=== PATIENT | female | born 1980 | race Caucasian/White ===

== ENCOUNTER → 2017-10-11 | Outpatient (REF) | payer OTHER ==
[2017-10-11 17:51] LABS: BASO % 0.5 % (0.0-1.0); EOS # 0.3 10^3/uL (0.0-0.50); EOS % 2.9 % (0.0-3.0); HEMATOCRIT 43.6 % (36.0-47.0); HEMOGLOBIN 13.4 g/dl (12.0-15.5); IMMATURE GRANULOCYTE % 0.6 % (0-3.0); MEAN CORPUSCULAR HEMOGLOBIN 25.4 pg (27.0-33.0); MEAN CORPUSCULAR HGB CONC 30.7 g/dl (32.0-36.5); MEAN CORPUSCULAR VOLUME 82.6 fl (80.0-96.0); MONO # 0.5 10^3/uL (0.0-0.8); MONO % 5.7 % (0.0-5.0); NEUTROPHILS # 4.9 10^3/uL (1.8-7.7); NEUTROPHILS % 56.3 % (36.0-66.0); PLATELET COUNT, AUTOMATED 239 10^3/uL (150-450); RED BLOOD COUNT 5.28 10^6/uL (4.00-5.40); RED CELL DISTRIBUTION WIDTH 16.4 % (11.5-14.5); WHITE BLOOD COUNT 8.7 10^3/uL (4.0-10.0)
[2017-10-11 17:58] LABS: ALBUMIN 3.1 GM/DL (3.2-5.2); ALBUMIN/GLOBULIN RATIO 0.74 (1.00-1.93); ALKALINE PHOSPHATASE 101 U/L (45-117); ALT/SGPT 24 U/L (12-78); ANION GAP 7 MEQ/L (8-16); AST/SGOT 18 U/L (7-37); BILIRUBIN,TOTAL 0.7 MG/DL (0.2-1.0); BLOOD UREA NITROGEN 10 MG/DL (7-18); CALCIUM LEVEL 8.4 MG/DL (8.5-10.1); CARBON DIOXIDE LEVEL 28 MEQ/L (21-32); CHLORIDE LEVEL 107 MEQ/L (98-107); CHOLESTEROL LEVEL 161 MG/DL (<200); CREATININE FOR GFR 0.64 MG/DL (0.55-1.30); GLOMERULAR FILTRATION RATE > 60.0 (>60); GLUCOSE, FASTING 111 MG/DL (70-100); HDL CHOLESTEROL 35 MG/DL (>40); LDL CHOLESTEROL 85.6 MG/DL (<100); NON-HDL-C 126 MG/DL; POTASSIUM SERUM 4.1 MEQ/L (3.5-5.1); SODIUM LEVEL 142 MEQ/L (136-145); THYROXINE (T4) 9.3 UG/DL (4.5-12.0); TOTAL PROTEIN 7.3 GM/DL (6.4-8.2); TRIGLYCERIDES LEVEL 202 MG/DL (<150)
[2017-10-11 18:36] LABS: HIV 1&2 SCREEN CENTAUR NEGATIVE (NEGATIVE)
[2017-10-11 22:28] LABS: ESTIMATED AVERAGE GLUCOSE 117 MG/DL (60-110); HEMOGLOBIN A1c 5.7 %
== END ==
LOC: M LAB REF 17:13
DX: R09.81 Nasal congestion (principal); Z68.45 Body mass index [BMI] 70 or greater, adult; Z11.3 Encounter for screening for infections with a predominantly sexual mode of transmission
CPT/HCPCS: 84443

== ENCOUNTER → 2019-04-28 | Outpatient (REF) | payer OTHER, MEDICAID ==
[~2019-04-28] MED LIST: LABE20TAB PO; MOTR200T44 PO; PERC5TAB12 PO; PRENTAB9 PO
[2019-04-28 19:03] LABS: BASO % 0.4 % (0.0-1.0); EOS # 0.2 10^3/uL (0.0-0.5); EOS % 2.5 % (0.0-3.0); HEMATOCRIT 40.5 % (36.0-47.0); LYMPH # 2.8 10^3/uL (1.5-5.0); LYMPH % 29.7 % (24.0-44.0); MEAN CORPUSCULAR HEMOGLOBIN 21.5 pg (27.0-33.0); MEAN CORPUSCULAR HGB CONC 27.2 g/dl (32.0-36.5); MEAN CORPUSCULAR VOLUME 79.1 fl (80.0-96.0); MONO # 0.6 10^3/uL (0.0-0.8); MONO % 6.4 % (0.0-5.0); NEUTROPHILS # 5.7 10^3/uL (1.5-8.5); NEUTROPHILS % 60.5 % (36.0-66.0); PLATELET COUNT, AUTOMATED 241 10^3/uL (150-450); RED BLOOD COUNT 5.12 10^6/uL (4.00-5.40); WHITE BLOOD COUNT 9.4 10^3/uL (4.0-10.0)
[2019-04-28 19:35] LABS: ALBUMIN 3.2 GM/DL (3.2-5.2); ALT/SGPT 21 U/L (12-78); BILIRUBIN,TOTAL 0.7 MG/DL (0.2-1.0); BLOOD UREA NITROGEN 10 MG/DL (7-18); CALCIUM LEVEL 8.3 MG/DL (8.5-10.1); CARBON DIOXIDE LEVEL 27 MEQ/L (21-32); CHLORIDE LEVEL 103 MEQ/L (98-107); CHOLESTEROL LEVEL 153 MG/DL (<200); CHOLESTEROL RISK RATIO 4.636 (<5); CREATININE FOR GFR 0.53 MG/DL (0.55-1.30); FREE T4 1.15 NG/DL (0.76-1.46); GLOMERULAR FILTRATION RATE > 60.0 (>60); GLUCOSE, FASTING 106 MG/DL (70-100); HDL CHOLESTEROL 33 MG/DL (>40); LDL CHOLESTEROL 85 MG/DL (<100); NON-HDL-C 120 MG/DL; POTASSIUM SERUM 4.9 MEQ/L (3.5-5.1); SODIUM LEVEL 138 MEQ/L (136-145); TOTAL PROTEIN 7.7 GM/DL (6.4-8.2); TRIGLYCERIDES LEVEL 173 MG/DL (<150)
[2019-04-28 19:41] LABS: HEMOGLOBIN A1c 6.1 %
== END ==
LOC: M LAB REF 17:24
PROVIDERS: ATTEND Family Medicine
DX: R03.0 Elevated blood-pressure reading, without diagnosis of hypertension (principal); Z68.45 Body mass index [BMI] 70 or greater, adult; R73.01 Impaired fasting glucose

== ENCOUNTER → 2020-03-21 | Outpatient (REF) | payer OTHER, MEDICAID ==
[2020-03-21 15:50] LABS: ALBUMIN 3.1 GM/DL (3.2-5.2); ALT/SGPT 16 U/L (12-78); BILIRUBIN,TOTAL 0.7 MG/DL (0.2-1.0); BLOOD UREA NITROGEN 9 MG/DL (7-18); CALCIUM LEVEL 8.4 MG/DL (8.5-10.1); CARBON DIOXIDE LEVEL 27 MEQ/L (21-32); CHLORIDE LEVEL 107 MEQ/L (98-107); CHOLESTEROL LEVEL 142 MG/DL (<200); CHOLESTEROL RISK RATIO 4.057 (<5); CREATININE FOR GFR 0.61 MG/DL (0.55-1.30); GLOMERULAR FILTRATION RATE > 60.0 (>58); GLUCOSE, FASTING 125 MG/DL (70-100); HDL CHOLESTEROL 35 MG/DL (>40); LDL CHOLESTEROL 74 MG/DL (<100); NON-HDL-C 107 MG/DL; SODIUM LEVEL 140 MEQ/L (136-145); TOTAL PROTEIN 6.9 GM/DL (6.4-8.2); TRIGLYCERIDES LEVEL 163 MG/DL (<150)
[2020-03-21 16:52] LABS: HEMOGLOBIN A1c 5.9 %
== END ==
LOC: M LAB REF 12:24
PROVIDERS: ATTEND Physician Assistant
DX: R03.0 Elevated blood-pressure reading, without diagnosis of hypertension (principal)

== ENCOUNTER 2024-11-27 14:16 | Inpatient (IN) | payer OTHER ==
[~2024-11-27] VITALS: Ht 162.6 cm; Wt 241.4 kg
[2024-11-27 15:15] LABS: BASO # 0.0 10^3/uL (0.0-0.2); BASO % 0.2 % (0.0-1.0); EOS # 0.0 10^3/uL (0.0-0.5); EOS % 0.0 % (0.0-3.0); LYMPH # 1.3 10^3/uL (1.5-5.0); LYMPH % 6.6 % (24.0-44.0); MONO # 1.1 10^3/uL (0.0-0.8); MONO % 5.8 % (2.0-8.0); NEUTROPHILS # 16.8 10^3/uL (1.5-8.5); NEUTROPHILS % 86.1 % (36.0-66.0); PLATELET COUNT, AUTOMATED 334 10^3/uL (150-450)
[2024-11-27 15:24] LABS: ALT/SGPT 59 U/L (7.0-40); AST/SGOT 239 U/L (<34); CALCIUM LEVEL 8.7 MG/DL (8.5-10.1); CARBON DIOXIDE LEVEL 20 MMOL/L (20-31); CHLORIDE LEVEL 98 MMOL/L (98-107); CREATININE FOR GFR 3.09 MG/DL (0.55-1.30); GLOMERULAR FILTRATION RATE 18.3 (>58); POTASSIUM SERUM 4.7 MMOL/L (3.5-5.1); SODIUM LEVEL 134 MMOL/L (136-145)
[2024-11-27 15:27] LABS: INR 1.17
[2024-11-27 15:33] LABS: C REACTIVE PROTEIN QUANTITATIV 20.57 MG/DL (<1.0); HCG, SERUM QUALITATIVE NEGATIVE (NEGATIVE)
[2024-11-27] MEDS: NS (Normal Saline) 0.9% 1,000 ML IV ONE ×2 (15:34→17:53)
[2024-11-27] MEDS: CEFEPIME HCL 2 GM in DEXTROSE 5% (D5W) ADV/MINI-BAG 50 ML IV ONE (16:21)
[2024-11-27] MEDS: [UNRECOGNIZED DRUG - OTHER] IV ONE (16:22)
[2024-11-27] MEDS: NS 0.9% IV ONE (16:22)
[2024-11-27 16:28] LABS: KETONE, URINE AUTO RFX NEGATIVE (NEGATIVE); MUCUS, URINE RFX SMALL (NEGATIVE); NITRITE, URINE AUTO RFX NEGATIVE (NEGATIVE); RBC, URINE AUTO RFX 26 /HPF (0-3); SQUAM EPITHELIAL CELL UR AURFX 3 /HPF (0-6)
[2024-11-27 16:39] LABS: LEUKOCYTE ESTERASE UR AUTO RFX 2+ (NEGATIVE); WBC, URINE AUTO RFX TNTC /HPF (0-3)
[2024-11-27] MEDS ORDERED: TELM1TAB35 PO (17:13)
[2024-11-27] MEDS ORDERED: METF-838 PO (17:13)
[2024-11-27] MEDS ORDERED: FERR325T19 PO (17:13)
[2024-11-27] MEDS ORDERED: HOME MED LIST COMPLETE! XX SCH (17:15)
[2024-11-27] MEDS ORDERED: GLUCAGON INJ 1 MG VIAL SC PRN (17:30)
[2024-11-27] MEDS ORDERED: GLUCOSE 4 GM CHEW PO PRN (17:30)
[2024-11-27] MEDS ORDERED: DEXTROSE 50% 50 ML SYRINGE IV PRN (17:30)
[2024-11-27] MEDS: VANCOMYCIN HCL 2,000 MG, VIAL MATE ADAPTER 1 EACH in NS 500 ML IV ONE (18:39)
[2024-11-27] MEDS: INSULIN LISPRO (NovoLOG) PER UNIT SC SCH ×2 (18:40→21:00)
[2024-11-27] MEDS: MORPHINE 4 MG/ML 1 ML VIAL IV PRN (19:24)
[2024-11-27] MEDS: NS (Normal Saline) 0.9% 1,000 ML IV SCH (19:25)
[2024-11-27 21:20] VITALS: BP 98/42; TEMP 97.8; O2SAT 95
[2024-11-27] MEDS: NYSTATIN 100,000 UNITS/GM TOPICAL PWD 15 GM TOP SCH (21:55)
[2024-11-27] MEDS: HEPARIN SOD 5000 UNITS/ML 1 ML VIAL/SYRINGE SQ SCH (22:08)
[2024-11-27 23:25] VITALS: BP 99/50; TEMP 97.2; O2SAT 100
[2024-11-28] VITALS (10 sets, daily range): BP systolic 69–106; BP diastolic 32–56; TEMP 97.7–98.5; O2SAT 92–96
[2024-11-28] MEDS: NS (Normal Saline) 0.9% 1,000 ML IV STA ×2 (04:24)
[2024-11-28 06:01] LABS: PLATELET COUNT, AUTOMATED 202 10^3/uL (150-450)
[2024-11-28 06:18] LABS: VANCOMYCIN RANDOM 10.4 UG/ML
[2024-11-28 06:19] LABS: CALCIUM LEVEL 7.5 MG/DL (8.5-10.1); CARBON DIOXIDE LEVEL 23.0 MMOL/L (20-31); CHLORIDE LEVEL 105.0 MMOL/L (98-107); CREATININE FOR GFR 1.7 MG/DL (0.55-1.30); GLOMERULAR FILTRATION RATE 37.5 (>58); POTASSIUM SERUM 4.0 MMOL/L (3.5-5.1); SODIUM LEVEL 138.0 MMOL/L (136-145)
[2024-11-28 08:26] LABS: ALT/SGPT 58.0 U/L (7.0-40); AST/SGOT 278.0 U/L (<34); CPK CREATINE PHOSPHOKINASE 9884.0 U/L (34-145)
[2024-11-28] MEDS ORDERED: CEFEPIME HCL 2 GM in DEXTROSE 5% (D5W) ADV/MINI-BAG 50 ML IV SCH (09:00)
[2024-11-28] MEDS: VANCOMYCIN HCL 1,500 MG, VIAL MATE ADAPTER 1 EACH in NS 500 ML IV SCH (09:44)
[2024-11-28] MEDS: GABAPENTIN 100 MG CAP PO SCH (12:15)
[2024-11-28] MEDS: CEFEPIME HCL 2 GM in DEXTROSE 5% (D5W) ADV/MINI-BAG 50 ML IV SCH (12:16)
[2024-11-28] MEDS: PERCOCET 5MG/325MG TAB PO PRN (12:16)
[2024-11-29] VITALS (11 sets, daily range): BP systolic 92–110; BP diastolic 44–96; TEMP 97.6–98.2; O2SAT 82–96
[2024-11-29] MEDS: NS 500 ML IV ONE (01:12)
[2024-11-29 06:19] LABS: BASO # 0.0 10^3/uL (0.0-0.2); BASO % 0.4 % (0.0-1.0); EOS # 0.2 10^3/uL (0.0-0.5); EOS % 1.4 % (0.0-3.0); LYMPH # 2.0 10^3/uL (1.5-5.0); LYMPH % 17.8 % (24.0-44.0); MONO # 0.9 10^3/uL (0.0-0.8); MONO % 7.7 % (2.0-8.0); NEUTROPHILS # 7.8 10^3/uL (1.5-8.5); NEUTROPHILS % 69.3 % (36.0-66.0); PLATELET COUNT, AUTOMATED 213 10^3/uL (150-450)
[2024-11-29 06:45] LABS: ALT/SGPT 59.0 U/L (7.0-40); AST/SGOT 223.0 U/L (<34); C REACTIVE PROTEIN QUANTITATIV 13.56 MG/DL (<1.0); CALCIUM LEVEL 7.2 MG/DL (8.5-10.1); CARBON DIOXIDE LEVEL 25.0 MMOL/L (20-31); CHLORIDE LEVEL 106.0 MMOL/L (98-107); CREATININE FOR GFR 0.83 MG/DL (0.55-1.30); GLOMERULAR FILTRATION RATE 88.5 (>58); MAGNESIUM LEVEL 1.9 MG/DL (1.8-2.4); POTASSIUM SERUM 3.9 MMOL/L (3.5-5.1); SODIUM LEVEL 139.0 MMOL/L (136-145)
[2024-11-29 08:24] LABS: CPK CREATINE PHOSPHOKINASE 5927.0 U/L (34-145)
[2024-11-29] MEDS: cefTRIAXone SOD 2 GM in DEXTROSE 5% (D5W) ADV/MINI-BAG 50 ML IV SCH (08:51)
[2024-11-29] MEDS: VANCOMYCIN HCL 1,500 MG, VIAL MATE ADAPTER 1 EACH in NS 500 ML IV SCH (09:34)
[2024-11-29] MEDS ORDERED: CEFEPIME HCL 2 GM in DEXTROSE 5% (D5W) ADV/MINI-BAG 50 ML IV SCH (10:00)
[2024-11-29] MEDS: DOCUSATE SODIUM 100 MG CAPSULE PO SCH (11:18)
[2024-11-29] MEDS: MIRALAX *UNIT DOSE* 17 GM PACKET PO SCH (11:21)
[2024-11-30 01:50] VITALS: BP 97/46
[2024-11-30 03:05] VITALS: BP 90/40; TEMP 98.2; O2SAT 94
[2024-11-30 03:17] LABS: BASO # 0.0 10^3/uL (0.0-0.2); BASO % 0.4 % (0.0-1.0); EOS # 0.3 10^3/uL (0.0-0.5); EOS % 3.6 % (0.0-3.0); LYMPH # 1.9 10^3/uL (1.5-5.0); LYMPH % 20.9 % (24.0-44.0); MONO # 0.5 10^3/uL (0.0-0.8); MONO % 5.4 % (2.0-8.0); NEUTROPHILS # 6.1 10^3/uL (1.5-8.5); NEUTROPHILS % 65.3 % (36.0-66.0); PLATELET COUNT, AUTOMATED 201 10^3/uL (150-450)
[2024-11-30 03:48] LABS: ALT/SGPT 48 U/L (7.0-40); AST/SGOT 142 U/L (<34); CALCIUM LEVEL 7.2 MG/DL (8.5-10.1); CARBON DIOXIDE LEVEL 27 MMOL/L (20-31); CHLORIDE LEVEL 109 MMOL/L (98-107); CREATININE FOR GFR 0.64 MG/DL (0.55-1.30); GLOMERULAR FILTRATION RATE > 90.0 (>58); POTASSIUM SERUM 4.4 MMOL/L (3.5-5.1); SODIUM LEVEL 138 MMOL/L (136-145)
[2024-11-30 10:37] LABS: CPK CREATINE PHOSPHOKINASE 2992 U/L (34-145)
[2024-11-30 10:45] VITALS: BP 110/64
[2024-11-30 12:00] VITALS: BP 111/61; TEMP 98.2; O2SAT 96
[2024-11-30] MEDS: BISACODYL 10 MG SUPP PR ONE (13:41)
[2024-11-30 20:00] VITALS: BP 96/55; TEMP 98.4; O2SAT 87
[2024-11-30] MEDS: SENNOSIDES/DOCUSATE SODIUM 8.6 MG/50MG TAB PO SCH (21:12)
[2024-12-01 05:19] VITALS: BP 86/47; TEMP 97.9; O2SAT 94
[2024-12-01 06:22] LABS: PLATELET COUNT, AUTOMATED 274 10^3/uL (150-450)
[2024-12-01 06:53] LABS: CALCIUM LEVEL 7.5 MG/DL (8.5-10.1); CARBON DIOXIDE LEVEL 28 MMOL/L (20-31); CHLORIDE LEVEL 107 MMOL/L (98-107); CREATININE FOR GFR 0.54 MG/DL (0.55-1.30); GLOMERULAR FILTRATION RATE > 90.0 (>58); MAGNESIUM LEVEL 1.8 MG/DL (1.8-2.4); POTASSIUM SERUM 4.1 MMOL/L (3.5-5.1); SODIUM LEVEL 139 MMOL/L (136-145)
[2024-12-01 08:20] LABS: CPK CREATINE PHOSPHOKINASE 1268 U/L (34-145)
[2024-12-01 08:23] LABS: ALT/SGPT 42 U/L (7.0-40); AST/SGOT 87 U/L (<34)
[2024-12-01 11:36] VITALS: BP 98/42; O2SAT 97
[2024-12-01 12:00] VITALS: TEMP 97.9; O2SAT 96
[2024-12-01 20:40] VITALS: BP 124/55; TEMP 98.8; O2SAT 94
[2024-12-02 04:07] VITALS: BP 127/57; TEMP 96.8; O2SAT 95
[2024-12-02 06:46] LABS: PLATELET COUNT, AUTOMATED 279 10^3/uL (150-450)
[2024-12-02 07:20] LABS: CALCIUM LEVEL 7.3 MG/DL (8.5-10.1); CARBON DIOXIDE LEVEL 31 MMOL/L (20-31); CHLORIDE LEVEL 105 MMOL/L (98-107); CREATININE FOR GFR 0.48 MG/DL (0.55-1.30); GLOMERULAR FILTRATION RATE > 90.0 (>58); MAGNESIUM LEVEL 1.6 MG/DL (1.8-2.4); POTASSIUM SERUM 4.0 MMOL/L (3.5-5.1); SODIUM LEVEL 140 MMOL/L (136-145)
[2024-12-02] MEDS: MAG SULF 1GM/100ML (MAG RUN) 1 GM in IV 1 EA IV SCH (08:06)
[2024-12-02 08:08] LABS: CPK CREATINE PHOSPHOKINASE 467 U/L (34-145)
[2024-12-02] MEDS: MAGNESIUM OXIDE 400 MG TAB PO SCH (09:00)
[2024-12-02 12:00] VITALS: BP 131/55; TEMP 98.1; O2SAT 95
[2024-12-02] MEDS: GABAPENTIN 100 MG CAP PO SCH (13:16)
[2024-12-02 20:39] VITALS: BP 100/52; TEMP 98.8; O2SAT 92
[2024-12-02] MEDS: CEFDINIR 300 MG CAP PO SCH (21:04)
[2024-12-03 03:38] VITALS: O2SAT 71
[2024-12-03 03:39] VITALS: O2SAT 95
[2024-12-03 05:06] VITALS: BP 118/66; TEMP 97.5; O2SAT 96
[2024-12-03 12:00] VITALS: BP 111/66; TEMP 97.9; O2SAT 97
[2024-12-03] MEDS: ACETAMINOPHEN 325 MG TAB PO PRN (17:00)
[2024-12-03 20:49] VITALS: BP 120/62; TEMP 97.9; O2SAT 99
[2024-12-03] MEDS: GABAPENTIN 300 MG CAP PO SCH (21:39)
[2024-12-04 04:15] VITALS: BP 120/62; TEMP 97; O2SAT 95
[2024-12-05 04:03] VITALS: BP 133/67; TEMP 97.5; O2SAT 94
[2024-12-06 04:29] VITALS: BP 126/58; TEMP 97.3; O2SAT 93
[2024-12-07 01:56] VITALS: O2SAT 78
[2024-12-07 02:00] VITALS: O2SAT 93
[2024-12-07 05:03] VITALS: BP 123/61; TEMP 97.7; O2SAT 91
[2024-12-08 03:49] VITALS: BP 134/69; TEMP 97.5; O2SAT 94
[2024-12-09 04:21] VITALS: BP 135/69; TEMP 97.5; O2SAT 93
[2024-12-10 05:40] VITALS: BP 103/59; TEMP 97.7
[2024-12-10] MEDS: SANTYL OINT 30GM TOP SCH (18:28)
[2024-12-11 05:26] VITALS: BP 115/66; TEMP 97.7; O2SAT 93
[2024-12-11 11:28] LABS: PLATELET COUNT, AUTOMATED 232 10^3/uL (150-450)
[2024-12-11 11:55] LABS: CALCIUM LEVEL 8.3 MG/DL (8.5-10.1); CARBON DIOXIDE LEVEL 28 MMOL/L (20-31); CHLORIDE LEVEL 101 MMOL/L (98-107); CREATININE FOR GFR 0.55 MG/DL (0.55-1.30); GLOMERULAR FILTRATION RATE > 90.0 (>58); POTASSIUM SERUM 4.2 MMOL/L (3.5-5.1); SODIUM LEVEL 136 MMOL/L (136-145)
[2024-12-11] MEDS ORDERED: GABA-1172 PO (12:03)
[2024-12-11] MEDS ORDERED: MAGN400T33 PO (12:03)
[2024-12-11] MEDS ORDERED: SANT250O8 TOP (12:03)
[2024-12-11] MEDS ORDERED: NYST10006 TOP (12:03)
[2024-12-12 04:39] VITALS: BP 143/83; TEMP 97.9; O2SAT 94
[2024-12-12 12:00] VITALS: BP 106/52; TEMP 98.1; O2SAT 97
== END 2024-12-12 16:00 | disposition home health service (06) | DRG 720 ==
LOC: M ED 14:16 → M ED INP 17:26 → M PCU 21:15 → M MSPAV 11-29 13:15
PROVIDERS: ADMIT Internal Medicine; ATTEND Internal Medicine
DX: A41.9 Sepsis, unspecified organism (principal); N17.9 Acute kidney failure, unspecified; L89.152 Pressure ulcer of sacral region, stage 2; L89.322 Pressure ulcer of left buttock, stage 2; M62.82 Rhabdomyolysis; Z68.45 Body mass index [BMI] 70 or greater, adult; E83.42 Hypomagnesemia; K76.0 Fatty (change of) liver, not elsewhere classified; E66.01 Morbid (severe) obesity due to excess calories; D50.9 Iron deficiency anemia, unspecified; E11.9 Type 2 diabetes mellitus without complications; I10 Essential (primary) hypertension; J98.11 Atelectasis; K59.00 Constipation, unspecified; M79.3 Panniculitis, unspecified; N39.0 Urinary tract infection, site not specified; R53.1 Weakness; R74.01 Elevation of levels of liver transaminase levels; Z99.3 Dependence on wheelchair; G47.33 Obstructive sleep apnea (adult) (pediatric); B96.20 Unspecified Escherichia coli [E. coli] as the cause of diseases classified elsewhere; Z79.899 Other long term (current) drug therapy; R65.20 Severe sepsis without septic shock

== ENCOUNTER 2024-12-29 20:32 | Inpatient (IN) | payer MEDICAID, OTHER ==
[~2024-12-29] VITALS: Ht 157.5 cm; Wt 238.6 kg
[~2024-12-29 20:32] MED LIST changes: +FERR325T19 PO; +GABA-1172 PO; +MAGN400T33 PO; +METF-838 PO; +NYST10006 TOP; +SANT250O8 TOP; +TELM1TAB35 PO
[2024-12-29] MEDS: NS (Normal Saline) 0.9% 1,000 ML IV ONE (20:59)
[2024-12-29 21:49] LABS: KETONE, URINE AUTO RFX NEGATIVE (NEGATIVE); LEUKOCYTE ESTERASE UR AUTO RFX TRACE (NEGATIVE); MUCUS, URINE RFX SMALL (NEGATIVE); NITRITE, URINE AUTO RFX POSITIVE (NEGATIVE); RBC, URINE AUTO RFX 6 /HPF (0-3); SQUAM EPITHELIAL CELL UR AURFX 2 /HPF (0-6); WBC, URINE AUTO RFX 11 /HPF (0-3)
[2024-12-29] MEDS ORDERED: MUPIROCIN 2% OINT 22 GM TUBE TOP ONE (21:55)
[2024-12-29 21:56] LABS: BASO # 0.0 10^3/uL (0.0-0.2); BASO % 0.1 % (0.0-1.0); EOS # 0.0 10^3/uL (0.0-0.5); EOS % 0.1 % (0.0-3.0); LYMPH # 0.7 10^3/uL (1.5-5.0); LYMPH % 4.7 % (24.0-44.0); MONO # 0.4 10^3/uL (0.0-0.8); MONO % 3.1 % (2.0-8.0); NEUTROPHILS # 12.9 10^3/uL (1.5-8.5); NEUTROPHILS % 91.4 % (36.0-66.0); PLATELET COUNT, AUTOMATED 218 10^3/uL (150-450)
[2024-12-29 22:08] LABS: INR 1.05
[2024-12-29] MEDS: ACETAMINOPHEN *IV* 1,000 MG in IV 1 EA IV ONE (22:17)
[2024-12-29] MEDS: PIPERACILLIN/TAZOBACTAM SOD 4.5 GM in DEXTROSE 5% (D5W) ADV/MINI-BAG 50 ML IV ONE (22:17)
[2024-12-29 22:22] LABS: ALT/SGPT 20 U/L (7.0-40); AST/SGOT 42 U/L (<34); C REACTIVE PROTEIN QUANTITATIV 1.88 MG/DL (<1.0); CALCIUM LEVEL 8.4 MG/DL (8.5-10.1); CARBON DIOXIDE LEVEL 29 MMOL/L (20-31); CHLORIDE LEVEL 103 MMOL/L (98-107); CREATININE FOR GFR 0.57 MG/DL (0.55-1.30); GLOMERULAR FILTRATION RATE > 90.0 (>58); POTASSIUM SERUM 4.2 MMOL/L (3.5-5.1); SODIUM LEVEL 143 MMOL/L (136-145)
[2024-12-29] MEDS: VANCOMYCIN HCL 1,000 MG, VIAL MATE ADAPTER 1 EACH in NS 250 ML IV ONE (23:34)
[2024-12-30] MEDS: NS (Normal Saline) 0.9% 1,000 ML IV ONE (00:04)
[2024-12-30] MEDS: IBUPROFEN 800 MG TAB PO ONE (00:04)
[2024-12-30] MEDS ORDERED: MOM 30 ML SUSPENSION UDC PO PRN (00:25)
[2024-12-30] MEDS ORDERED: MAALOX 30 ML SUSP *UDC PO PRN (00:25)
[2024-12-30] MEDS: NS (Normal Saline) 0.9% 1,000 ML IV SCH (00:25)
[2024-12-30] MEDS: VANCOMYCIN HCL 1,000 MG, VIAL MATE ADAPTER 1 EACH in NS 250 ML IV ONE (03:29)
[2024-12-30] MEDS ORDERED: DEXTROSE 50% 50 ML SYRINGE IV PRN (03:40)
[2024-12-30] MEDS ORDERED: GLUCOSE 4 GM CHEW PO PRN (03:40)
[2024-12-30] MEDS ORDERED: GLUCAGON INJ 1 MG VIAL SC PRN (03:40)
[2024-12-30 04:25] VITALS: BP 102/54; TEMP 100.2; O2SAT 96
[2024-12-30] MEDS: PIPERACILLIN/TAZOBACTAM SOD 4.5 GM in DEXTROSE 5% (D5W) ADV/MINI-BAG 50 ML IV SCH (04:58)
[2024-12-30] MEDS: GABAPENTIN 400 MG CAP PO ONE (05:44)
[2024-12-30 06:05] LABS: PLATELET COUNT, AUTOMATED 203 10^3/uL (150-450)
[2024-12-30 06:37] LABS: ALT/SGPT 16.0 U/L (7.0-40); AST/SGOT 34.0 U/L (<34); CALCIUM LEVEL 7.9 MG/DL (8.5-10.1); CARBON DIOXIDE LEVEL 28.0 MMOL/L (20-31); CHLORIDE LEVEL 103.0 MMOL/L (98-107); CREATININE FOR GFR 0.82 MG/DL (0.55-1.30); GLOMERULAR FILTRATION RATE 89.8 (>58); MAGNESIUM LEVEL 1.5 MG/DL (1.8-2.4); POTASSIUM SERUM 3.9 MMOL/L (3.5-5.1); SODIUM LEVEL 142.0 MMOL/L (136-145)
[2024-12-30] MEDS ORDERED: VANCOMYCIN HCL 1,500 MG, VIAL MATE ADAPTER 1 EACH in NS 500 ML IV SCH (08:00)
[2024-12-30 08:04] VITALS: BP 105/56; TEMP 98; O2SAT 94
[2024-12-30 08:46] LABS: VANCOMYCIN RANDOM 13.1 UG/ML
[2024-12-30 09:00] LABS: C REACTIVE PROTEIN QUANTITATIV 15.13 MG/DL (<1.0)
[2024-12-30] MEDS: SANTYL OINT 30GM TOP SCH (09:00)
[2024-12-30] MEDS ORDERED: GABA-1172 PO (09:04)
[2024-12-30] MEDS ORDERED: NYST1POW3 TOP (09:06)
[2024-12-30] MEDS ORDERED: HOME MED LIST COMPLETE! XX SCH (09:10)
[2024-12-30] MEDS: PANTOPRAZOLE 40MG VIAL IV SCH (10:19)
[2024-12-30] MEDS: INSULIN LISPRO (NovoLOG) PER UNIT SC SCH ×2 (10:20→20:55)
[2024-12-30] MEDS: VANCOMYCIN HCL 1,250 MG, VIAL MATE ADAPTER 1 EACH in NS 250 ML IV SCH (10:21)
[2024-12-30] MEDS: HEPARIN SOD 5000 UNITS/ML 1 ML VIAL/SYRINGE SC SCH (10:22)
[2024-12-30] MEDS: DOCUSATE SODIUM 100 MG CAPSULE PO SCH (10:22)
[2024-12-30] MEDS: ACETAMINOPHEN 325 MG TAB PO PRN (10:22)
[2024-12-30] MEDS: KETOROLAC 30 MG/ML 1 ML VIAL IV ONE (12:13)
[2024-12-30 14:31] VITALS: BP 108/54; TEMP 101.3; O2SAT 99
[2024-12-30] MEDS: MAG SULF 1GM/100ML (MAG RUN) 1 GM in IV 1 EA IV SCH (14:43)
[2024-12-30] MEDS: ACETAMINOPHEN *IV* 1,000 MG in IV 1 EA IV ONE (15:14)
[2024-12-30] MEDS ORDERED: ISOVUE-370 76% 100 ML VIAL As Ordered ONE (15:26)
[2024-12-30 16:39] VITALS: BP 103/50; TEMP 101.6; O2SAT 93
[2024-12-30 16:55] VITALS: TEMP 99.9
[2024-12-30 20:11] VITALS: BP 111/57; TEMP 100.6; O2SAT 95
[2024-12-30] MEDS: PREGABALIN 50 MG CAP PO SCH (20:55)
[2024-12-31 00:22] VITALS: BP 145/63; TEMP 102; O2SAT 99
[2024-12-31] MEDS: IBUPROFEN 600 MG TAB PO ONE (01:11)
[2024-12-31] MEDS ORDERED: ACETAMINOPHEN *IV* 1,000 MG in IV 1 EA IV ONE (03:00)
[2024-12-31 04:25] VITALS: BP 134/58; TEMP 100.2; O2SAT 96
[2024-12-31 05:45] LABS: PLATELET COUNT, AUTOMATED 175 10^3/uL (150-450)
[2024-12-31 06:21] LABS: ALT/SGPT 13 U/L (7.0-40); AST/SGOT 28 U/L (<34); CALCIUM LEVEL 7.7 MG/DL (8.5-10.1); CARBON DIOXIDE LEVEL 28 MMOL/L (20-31); CHLORIDE LEVEL 104 MMOL/L (98-107); CREATININE FOR GFR 0.61 MG/DL (0.55-1.30); GLOMERULAR FILTRATION RATE > 90.0 (>58); MAGNESIUM LEVEL 2.0 MG/DL (1.8-2.4); POTASSIUM SERUM 3.8 MMOL/L (3.5-5.1); SODIUM LEVEL 141 MMOL/L (136-145)
[2024-12-31 06:29] LABS: EOSINOPHILS 2 % (0-3); LYMPHOCYTES 21 % (16-44); MONOCYTES 3 % (0-5); NEUTROPHILS 74 % (28-66); PLATELET ESTIMATE NORMAL (NORMAL)
[2024-12-31 07:48] VITALS: BP 126/51; TEMP 98.2; O2SAT 98
[2024-12-31] MEDS: VANCOMYCIN HCL 1,000 MG, VIAL MATE ADAPTER 1 EACH in NS 250 ML IV SCH (10:31)
[2024-12-31 11:45] VITALS: BP 114/51; TEMP 98.1; O2SAT 97
[2024-12-31] MEDS ORDERED: PILL CUTTER 1 EACH XX PRN (12:00)
[2024-12-31] MEDS: MAGNESIUM OXIDE 400 MG TAB PO SCH (12:15)
[2024-12-31 16:00] VITALS: BP 111/56; TEMP 99.1; O2SAT 95
[2024-12-31 19:51] VITALS: BP 105/56; TEMP 100.4; O2SAT 91
[2024-12-31] MEDS: KETOROLAC 30 MG/ML 1 ML VIAL IV ONE (22:42)
[2025-01-01] VITALS (7 sets, daily range): BP systolic 101–129; BP diastolic 54–64; TEMP 99.5–101.5; O2SAT 90–97
[2025-01-01 08:04] LABS: BASO # 0.0 10^3/uL (0.0-0.2); BASO % 0.4 % (0.0-1.0); EOS # 0.3 10^3/uL (0.0-0.5); EOS % 3.4 % (0.0-3.0); LYMPH # 1.7 10^3/uL (1.5-5.0); LYMPH % 21.9 % (24.0-44.0); MONO # 0.4 10^3/uL (0.0-0.8); MONO % 4.7 % (2.0-8.0); NEUTROPHILS # 5.4 10^3/uL (1.5-8.5); NEUTROPHILS % 69.2 % (36.0-66.0); PLATELET COUNT, AUTOMATED 203 10^3/uL (150-450)
[2025-01-01 08:30] LABS: ALT/SGPT 12 U/L (7.0-40); AST/SGOT 18 U/L (<34); CALCIUM LEVEL 7.8 MG/DL (8.5-10.1); CARBON DIOXIDE LEVEL 28 MMOL/L (20-31); CHLORIDE LEVEL 106 MMOL/L (98-107); CREATININE FOR GFR 0.59 MG/DL (0.55-1.30); GLOMERULAR FILTRATION RATE > 90.0 (>58); MAGNESIUM LEVEL 2.0 MG/DL (1.8-2.4); POTASSIUM SERUM 4.1 MMOL/L (3.5-5.1); SODIUM LEVEL 142 MMOL/L (136-145)
[2025-01-01 08:41] LABS: C REACTIVE PROTEIN QUANTITATIV 23.99 MG/DL (<1.0)
[2025-01-01] MEDS: VANCOMYCIN HCL 1,250 MG, VIAL MATE ADAPTER 1 EACH in NS 250 ML IV SCH (10:06)
[2025-01-01] MEDS: PREGABALIN 100 MG CAP PO SCH (21:09)
[2025-01-01] MEDS: ACETAMINOPHEN *IV* 1,000 MG in IV 1 EA IV ONE (22:58)
[2025-01-02 03:22] VITALS: BP 126/61; TEMP 99; O2SAT 95
[2025-01-02 06:16] LABS: ALT/SGPT 13 U/L (7.0-40); AST/SGOT 20 U/L (<34); CALCIUM LEVEL 7.6 MG/DL (8.5-10.1); CARBON DIOXIDE LEVEL 27 MMOL/L (20-31); CHLORIDE LEVEL 107 MMOL/L (98-107); CREATININE FOR GFR 0.48 MG/DL (0.55-1.30); GLOMERULAR FILTRATION RATE > 90.0 (>58); MAGNESIUM LEVEL 2.0 MG/DL (1.8-2.4); POTASSIUM SERUM 4.2 MMOL/L (3.5-5.1); SODIUM LEVEL 143 MMOL/L (136-145)
[2025-01-02 06:20] LABS: BASO # 0.0 10^3/uL (0.0-0.2); BASO % 0.4 % (0.0-1.0); EOS # 0.3 10^3/uL (0.0-0.5); EOS % 4.5 % (0.0-3.0); LYMPH # 1.9 10^3/uL (1.5-5.0); LYMPH % 26.2 % (24.0-44.0); MONO # 0.5 10^3/uL (0.0-0.8); MONO % 7.2 % (2.0-8.0); NEUTROPHILS # 4.4 10^3/uL (1.5-8.5); NEUTROPHILS % 59.9 % (36.0-66.0); PLATELET COUNT, AUTOMATED 198 10^3/uL (150-450)
[2025-01-02 07:39] VITALS: BP 138/63; TEMP 98.6; O2SAT 9; O2SAT 99
[2025-01-02 11:42] VITALS: BP 137/66; TEMP 98.8; O2SAT 99
[2025-01-02 16:47] VITALS: BP 136/67; TEMP 99; O2SAT 98
[2025-01-02] MEDS: CEFPODOXIME PROXETIL 200 MG TABLET PO SCH (18:21)
[2025-01-02 19:56] VITALS: BP 128/60; TEMP 98.8; O2SAT 98
[2025-01-02 23:38] VITALS: BP 120/60; TEMP 99; O2SAT 93
[2025-01-03 03:18] VITALS: BP 133/62; TEMP 97.9; O2SAT 95
[2025-01-03 05:51] LABS: BASO # 0.0 10^3/uL (0.0-0.2); BASO % 0.5 % (0.0-1.0); EOS # 0.3 10^3/uL (0.0-0.5); EOS % 5.2 % (0.0-3.0); LYMPH # 2.2 10^3/uL (1.5-5.0); LYMPH % 35.2 % (24.0-44.0); MONO # 0.4 10^3/uL (0.0-0.8); MONO % 6.9 % (2.0-8.0); NEUTROPHILS # 3.0 10^3/uL (1.5-8.5); NEUTROPHILS % 48.0 % (36.0-66.0); PLATELET COUNT, AUTOMATED 221 10^3/uL (150-450)
[2025-01-03 06:15] LABS: ALT/SGPT 12 U/L (7.0-40); AST/SGOT 15 U/L (<34); CALCIUM LEVEL 8.2 MG/DL (8.5-10.1); CARBON DIOXIDE LEVEL 32 MMOL/L (20-31); CHLORIDE LEVEL 106 MMOL/L (98-107); CREATININE FOR GFR 0.45 MG/DL (0.55-1.30); GLOMERULAR FILTRATION RATE > 90.0 (>58); MAGNESIUM LEVEL 1.9 MG/DL (1.8-2.4); POTASSIUM SERUM 4.2 MMOL/L (3.5-5.1); SODIUM LEVEL 144 MMOL/L (136-145)
[2025-01-03 07:54] VITALS: BP 135/69; TEMP 96.2; O2SAT 98
[2025-01-03 11:38] VITALS: BP 135/65; TEMP 97; O2SAT 99
[2025-01-03 20:00] VITALS: BP 119/57; TEMP 97.3; O2SAT 93
[2025-01-04] MEDS: KETOROLAC 30 MG/ML 1 ML VIAL IV ONE (00:55)
[2025-01-04 01:45] VITALS: BP 118/74; TEMP 97.3; O2SAT 92
[2025-01-04 04:06] VITALS: BP 122/62; TEMP 97.3; O2SAT 93
[2025-01-04 07:11] LABS: PLATELET COUNT, AUTOMATED 242 10^3/uL (150-450)
[2025-01-04 07:30] LABS: ALT/SGPT 12 U/L (7.0-40); AST/SGOT 15 U/L (<34); CALCIUM LEVEL 8.2 MG/DL (8.5-10.1); CARBON DIOXIDE LEVEL 32 MMOL/L (20-31); CHLORIDE LEVEL 103 MMOL/L (98-107); CREATININE FOR GFR 0.48 MG/DL (0.55-1.30); GLOMERULAR FILTRATION RATE > 90.0 (>58); MAGNESIUM LEVEL 1.8 MG/DL (1.8-2.4); POTASSIUM SERUM 4.1 MMOL/L (3.5-5.1); SODIUM LEVEL 143 MMOL/L (136-145)
[2025-01-04 07:54] LABS: ATYPICAL LYMPH 5 % (0-5); EOSINOPHILS 4 % (0-3); LYMPHOCYTES 28 % (16-44); METAMYELOCYTES 2 % (0-0); MONOCYTES 3 % (0-5); MYELOCYTES 2 % (0-0); NEUTROPHILS 53 % (28-66); PLATELET ESTIMATE NORMAL (NORMAL)
[2025-01-04 14:46] VITALS: BP 148/85; TEMP 97.2; O2SAT 94
[2025-01-04 20:06] VITALS: BP 136/75; TEMP 97.7; O2SAT 92
[2025-01-05 04:26] VITALS: BP 155/85; TEMP 96.8; O2SAT 93
[2025-01-05 08:41] LABS: BASO # 0.1 10^3/uL (0.0-0.2); BASO % 1.2 % (0.0-1.0); EOS # 0.3 10^3/uL (0.0-0.5); EOS % 3.7 % (0.0-3.0); LYMPH # 2.3 10^3/uL (1.5-5.0); LYMPH % 29.3 % (24.0-44.0); MONO # 0.4 10^3/uL (0.0-0.8); MONO % 4.6 % (2.0-8.0); NEUTROPHILS # 4.0 10^3/uL (1.5-8.5); NEUTROPHILS % 51.6 % (36.0-66.0); PLATELET COUNT, AUTOMATED 271 10^3/uL (150-450)
[2025-01-05 09:12] LABS: ALT/SGPT 11 U/L (7.0-40); AST/SGOT 18 U/L (<34); CALCIUM LEVEL 8.2 MG/DL (8.5-10.1); CARBON DIOXIDE LEVEL 32 MMOL/L (20-31); CHLORIDE LEVEL 102 MMOL/L (98-107); CREATININE FOR GFR 0.43 MG/DL (0.55-1.30); GLOMERULAR FILTRATION RATE > 90.0 (>58); MAGNESIUM LEVEL 1.9 MG/DL (1.8-2.4); POTASSIUM SERUM 4.1 MMOL/L (3.5-5.1); SODIUM LEVEL 143 MMOL/L (136-145)
[2025-01-05 12:00] VITALS: BP 153/83; TEMP 97.5; O2SAT 88
[2025-01-05 22:34] VITALS: BP 151/83; TEMP 96.8; O2SAT 94
[2025-01-06 03:51] VITALS: BP 161/85; TEMP 97; O2SAT 91
[2025-01-06 04:19] VITALS: BP 154/82
[2025-01-06] MEDS ORDERED: MAGN400T33 PO (08:43)
[2025-01-06] MEDS ORDERED: CEFP200T PO (08:43)
[2025-01-06] MEDS ORDERED: PREG-35 PO (08:43)
[2025-01-06 12:00] VITALS: BP 155/80; TEMP 97.3; O2SAT 95
== END 2025-01-06 13:06 | disposition home health service (06) | DRG 720 ==
LOC: M ED 20:32 → M ED INP 12-30 03:38 → M PCU 12-30 04:20 → M MSPAV 01-04 01:41
PROVIDERS: ADMIT Student in an Organized Health Care Education/Training Program; ATTEND Student in an Organized Health Care Education/Training Program
DX: A41.9 Sepsis, unspecified organism (principal); E11.42 Type 2 diabetes mellitus with diabetic polyneuropathy; L89.153 Pressure ulcer of sacral region, stage 3; L89.302 Pressure ulcer of unspecified buttock, stage 2; N39.0 Urinary tract infection, site not specified; B96.20 Unspecified Escherichia coli [E. coli] as the cause of diseases classified elsewhere; I10 Essential (primary) hypertension; E11.69 Type 2 diabetes mellitus with other specified complication; E66.01 Morbid (severe) obesity due to excess calories; Z68.45 Body mass index [BMI] 70 or greater, adult; M79.3 Panniculitis, unspecified; G47.33 Obstructive sleep apnea (adult) (pediatric); Z79.899 Other long term (current) drug therapy; D50.9 Iron deficiency anemia, unspecified